=== PATIENT | female | born 1960 | race Caucasian/White ===

== ENCOUNTER 2017-04-16 13:32 | Emergency (ER) | payer OTHER ==
--- NOTE | 2017-04-16 15:18 | DIAGNOSTIC IMAGING REPORT ---
PROCEDURE: CT ABDOMEN/PELVIS W/O CONTRAST INDICATION: Right flank pain TECHNIQUE: Axial CT images were obtained through the abdomen and pelvis without IV contrast. Coronal and sagittal reformations were created. COMPARISON: None. FINDINGS: Clear lung bases. Normal sized heart. No hiatal hernia. No intrarenal calcifications. The right kidney is only partially ascended, located approximately at the level of the iliac crest, and has a morphology suggestive of intrarenal duplication. Mild right upper pole perinephric inflammation. No significant hydronephrosis, hydroureter or ureteral calcifications. The unenhanced appearance of the liver, decompressed gallbladder, adrenal glands, spleen, left kidney, pancreas, retroperitoneal vessels, stomach, and bowel loops is normal. Normal appendix. The uterus is present, normal size. Normal urinary bladder. The ovaries are not well seen. No adnexal masses. No adenopathy or free fluid. Intact osseous structures. IMPRESSION: 1. Mild perinephric inflammation around the partially ascended right kidney. Pyelonephritis should be considered as well as small stone passage. There were no urinary calculi identified in the collecting system. 2. Normal appendix. 3. Discussed with Dr. Farooq in the emergency room. All CT scans at this facility use dose modulation, iterative reconstruction, and/or weight-based dosing when appropriate to reduce radiation dose to as low as reasonably achievable.
--- NOTE | 2017-04-16 17:55 | ED NURSING NOTES ---
Clinical Report - Nurses [facility] [address] [place] [address] 04/16/2017 13:34 Patient: JERSEY VNAN TRIAGE Triage time 13:Apr 16 2017. Acuity: LEVEL 3. Chief Complaint: ABDOMINAL PAIN. 13:42 04/16/17. 13:42 04/16/17. Alert. ( RLQ pain that started this AM). --13:47 Efrain Salazar R.N. 13:42 04/16/17. BP: 100/68. HR: 96. RR: 16. O2 saturation: 99% on room air. Temp: 98.2 F (oral). Pain level now: 02/05. --13:47 Efrain Salazar R.N. Weight: 42.1 kg stated. Height/Length: 62 inches Per Patient. BMI: 17. --13:45 Efrain Salazar R.N. Medications Arnica. --13:46 Efrain Salazar R.N. Cantharis Compositum Oral. --13:47 Efrain Salazar R.N. Medication/allergy information source: the patient. --13:47 Efrain Salazar R.N. Allergies None. --13:47 Efrain Salazar R.N. History Arrived by private vehicle, and unaccompanied. Primary physician ([facility]). 13:42 04/16/17. This started today. ( This AM around 0400). 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 PAST MEDICAL HX: Immunizations not up to date. SOCIAL HX: Current every day heavy tobacco smoker- less than 1 pack per day. No alcohol use or drug use. No recent travel. No known contact with a sick individual. ABUSE ASSESSMENT: No report of abuse. FALL RISK ASSESSMENT: Fall risk assessment completed. No fall risk identified. NUTRITIONAL RISK ASSESSMENT: The nutritional risk assessment revealed no deficiencies. FUNCTIONAL ASSESSMENT: Functional assessment: no impairments noted. LEARNING NEEDS ASSESSMENT: The learning needs assessment revealed no barriers. SKIN INTEGRITY ASSESSMENT: Skin integrity risk assessment completed. No skin integrity risk identified. --13:47 Efrain Salazar R.N. PROBLEMS: UTI - Urinary Tract Infection. --13:49 Efrain Salazar R.N. ADDITIONAL SURGERIES: Colonoscopy [2017]. --13:49 Efrain Salazar R.N. The following entry was struck by Efrain Salazar R.N., 13:49 <<STRICKEN ENTRY-- Colonoscopy. --13:48 Efrain Salazar R.N. --END STRIKE>>. Assessment 13:42 04/16/17. --13:47 Efrain Salazar R.N. Interventions 13:42 04/16/17. 13:42 04/16/17. ID and allergy band on patient. To treatment room. --13:47 Efrain Salazar R.N. PHYSICAL ASSESSMENT 13:42 04/16/17. Ambulatory to room. GENERAL / NEURO / PSYCH: Alert. Oriented X 4. RESPIRATORY: Respirations not labored. GI / : Abdominal tenderness in the right lower quadrant. ( RLQ pain with palpation). SKIN: Skin is warm and dry. --13:48 Efrain Salazar R.N. NURSING PROGRESS NOTES 13:48 04/16/17. The plan of care for this patient has been created. Patient gowned. Head of bed elevated. Reassurance given. Two patient identifiers checked. Call light placed in reach. Side rails up x 2. Bed placed in lowest position. Brakes of bed on. --13:48 Efrain Salazar R.N. 13:48 04/16/17. Patient ready for evaluation- chart flagged. --13:48 Efrain Salazar R.N. 13:50 04/16/2017 Site #1 started via IV in the left antecubital space with an 20g angiocath; one attempt. Blood drawn: rainbow set. Labeled in the presence of the patient and sent to the lab. Saline lock flushed with 10 mL saline. --13:50 Efrain Salazar R.N. 14:42 04/16/17. ( at bedside). --14:42 Efrain Salazar R.N. 15:43 04/16/2017 Started 1 gm of Ceftriaxone IVPB in bag #1 50 mL; at 120 mL/hr over 20 minute(s) via site #1; Allergies verified and confirmed 5 rights. IV patency established. IV site checked: no pain, redness, or swelling. IV flushed thoroughly pre- and post-medication administration. Completed per protocol. --15:44 Efrain Salazar R.N. 16:09 04/16/2017 Ceftriaxone IVPB Discontinued: bag #1 infused. Total amount infused: 50 mL. IV patency established. IV site checked: no pain, redness, or swelling. IV flushed thoroughly. --16:14 Efrain Salazar R.N. 16:49 04/16/2017 Percocet (Oxycodone-Acetaminophen) PO 5/325 mg Tablets 1 tab given. Allergies verified, confirmed 5 rights and sedative warning given to the patient. --16:49 Efrain Salazar R.N. 17:25 04/16/17. BP: 102/67. HR: 72. RR: 14. O2 saturation: 100% on room air. --17:25 Efrain Salazar R.N. 17:25 04/16/17. --17:25 Efrain Salazar R.N. 17:04/16/17. Patient informed about reason for wait and about plan of care. --17:26 Efrain Salazar R.N. 17:26 04/16/17. Patient waiting for disposition. --17:26 Efrain Salazar R.N. 17:53 04/16/2017 Site #1 removed upon discharge. Catheter intact. --17:53 Efrain Salazar R.N. DISPOSITION / DISCHARGE 17:54 04/16/17. Condition at departure: improved. The goals identified in the patient's plan of care were met. No learning barriers present. Discharge instructions provided and reviewed with the patient. Reviewed warnings. Reviewed medication(s). Patient verbalized understanding. Written instructions provided in Bengali. The patient was discharged by the physician. She was discharged home. She left the Emergency Department ambulatory and via private vehicle. Marketing Development Specialist driving. FALL RISK ASSESSMENT: Fall risk assessment completed. No fall risk identified. --17:54 Efrain Salazar R.N. 17:53 04/16/17. BP: 104/70. HR: 83. RR: 14. O2 saturation: 98% on room air. Temp: 98.2 F (oral). Pain level now: 12/06. --17:54 Efrain Salazar R.N. Departure time: 1800. --18:48 Efrain Salazar R.N. Locked/Released at 04/16/2017 18:49 by Efrain Salazar R.N.
--- NOTE | 2017-04-16 17:55 | ED ORDER SUMMARY ---
..... Patient: JERSEY VANN OrderSheet [facility] VisitID: [id number] [place] [address] 56y, F Registration Date/Time: 04/16/2017 ORDER SHEET Weight: 42.1 kg (stated) Allergies: None GENERAL ORDERS: UA-Culture if indicated Urgent (13:48 04/16/2017 JBoardley R.N. per protocol) (Ack 13:54 AMcQuoid ER Tech1) (13:57 JBoardley R.N.) CBC w Diff Urgent (13:49 04/16/2017 JBoardley R.N. per protocol) (Ack 13:54 AMcQuoid ER Tech1) (13:57 JBoardley R.N.) CMP Urgent (13:49 04/16/2017 JBoardley R.N. per protocol) (Ack 13:54 AMcQuoid ER Tech1) (13:57 JBoardley R.N.) CT Abd/Pel wo Cont (Right) Urgent (14:47 04/16/2017 Meme Stringer) (Ack 14:59 AMcQuoid ER Tech1) (15:39 JBoardley R.N.) MEDICATION ORDERS: Percocet PO 5/325 mg (HIGH ALERT MEDICATION, NOW) (16:49 04/16/2017 JBoardley R.N. verbal order read back to Meme Stringer) (16:49 JBoardley R.N.) IV FLUIDS: IV Saline Lock (13:50 04/16/2017 JBoardley R.N. per protocol) (13:50 JBoardley R.N.) Ceftriaxone IV 1 gm/50mL (NOW) (15:37 04/16/2017 Meme Stringer) (Ack 15:41 JBoardley R.N.) (15:44 JBoardley R.N.) ORDER SHEET NOTES: [Electronically signed by Efrain Salazar R.N. (18:49 04/16/2017)] [Electronically signed by Dilip Farooq Dr. (11:58 04/17/2017)] [Electronically locked/signed by Efrain Salazar R.N. (18:49 04/16/2017)]
--- NOTE | 2017-04-16 17:55 | ED NURSING NOTES ---
Clinical Report - Nurses [facility] [address] [place] [address] 04/16/2017 13:34 Patient: EJRSEY VANN TRIAGE Triage time 13:Apr 16 2017. Acuity: LEVEL 3. Chief Complaint: ABDOMINAL PAIN. 13:42 04/16/17. 13:42 04/16/17. Alert. ( RLQ pain that started this AM). --13:47 Efrain Salazar R.N. 13:42 04/16/17. BP: 100/68. HR: 96. RR: 16. O2 saturation: 99% on room air. Temp: 98.2 F (oral). Pain level now: 02/05. --13:47 Efrain Salazar R.N. Weight: 42.1 kg stated. Height/Length: 62 inches Per Patient. BMI: 17. --13:45 Efrain Salazar R.N. Medications Arnica. --13:46 Efrain Salzaar R.N. Cantharis Compositum Oral. --13:47 Efrain Salazar R.N. Medication/allergy information source: the patient. --13:47 Efrain Salazar R.N. Allergies None. --13:47 Efrain Salazar R.N. History Arrived by private vehicle, and unaccompanied. Primary physician ([facility] The[facility]). 13:42 04/16/17. This started today. ( This AM around 0400). 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 PAST MEDICAL HX: Immunizations not up to date. SOCIAL HX: Current every day heavy tobacco smoker- less than 1 pack per day. No alcohol use or drug use. No recent travel. No known contact with a sick individual. ABUSE ASSESSMENT: No report of abuse. FALL RISK ASSESSMENT: Fall risk assessment completed. No fall risk identified. NUTRITIONAL RISK ASSESSMENT: The nutritional risk assessment revealed no deficiencies. FUNCTIONAL ASSESSMENT: Functional assessment: no impairments noted. LEARNING NEEDS ASSESSMENT: The learning needs assessment revealed no barriers. SKIN INTEGRITY ASSESSMENT: Skin integrity risk assessment completed. No skin integrity risk identified. --13:47 Efrain Salazar R.N. PROBLEMS: UTI - Urinary Tract Infection. --13:49 Efrain Salazar R.N. ADDITIONAL SURGERIES: Colonoscopy [2017]. --13:49 Efrain Salazar R.N. The following entry was struck by Efrain Salazar R.N., 13:49 <<STRICKEN ENTRY-- Colonoscopy. --13:48 Efrain Salazar R.N. --END STRIKE>>. Assessment 13:42 04/16/17. --13:47 Efrain Salazar R.N. Interventions 13:42 04/16/17. 13:42 04/16/17. ID and allergy band on patient. To treatment room. --13:47 Efrain Salazar R.N. PHYSICAL ASSESSMENT 13:42 04/16/17. Ambulatory to room. GENERAL / NEURO / PSYCH: Alert. Oriented X 4. RESPIRATORY: Respirations not labored. GI / : Abdominal tenderness in the right lower quadrant. ( RLQ pain with palpation). SKIN: Skin is warm and dry. --13:48 Efrain Salazar R.N. NURSING PROGRESS NOTES 13:48 04/16/17. The plan of care for this patient has been created. Patient gowned. Head of bed elevated. Reassurance given. Two patient identifiers checked. Call light placed in reach. Side rails up x 2. Bed placed in lowest position. Brakes of bed on. --13:48 Efrain Salazar R.N. 13:48 04/16/17. Patient ready for evaluation- chart flagged. --13:48 Efrain Salazar R.N. 13:50 04/16/2017 Site #1 started via IV in the left antecubital space with an 20g angiocath; one attempt. Blood drawn: rainbow set. Labeled in the presence of the patient and sent to the lab. Saline lock flushed with 10 mL saline. --13:50 Efrain Salazar R.N. 14:42 04/16/17. ( at bedside). --14:42 Efrain Salazar R.N. 15:43 04/16/2017 Started 1 gm of Ceftriaxone IVPB in bag #1 50 mL; at 120 mL/hr over 20 minute(s) via site #1; Allergies verified and confirmed 5 rights. IV patency established. IV site checked: no pain, redness, or swelling. IV flushed thoroughly pre- and post-medication administration. Completed per protocol. --15:44 Efrain Salazar R.N. 16:09 04/16/2017 Ceftriaxone IVPB Discontinued: bag #1 infused. Total amount infused: 50 mL. IV patency established. IV site checked: no pain, redness, or swelling. IV flushed thoroughly. --16:14 Efrain Salazar R.N. 16:49 04/16/2017 Percocet (Oxycodone-Acetaminophen) PO 5/325 mg Tablets 1 tab given. Allergies verified, confirmed 5 rights and sedative warning given to the patient. --16:49 Efrain Salazar R.N. 17:25 04/16/17. BP: 102/67. HR: 72. RR: 14. O2 saturation: 100% on room air. --17:25 Efrain Salazar R.N. 17:25 04/16/17. --17:25 Efrain Salazar R.N. 17:04/16/17. Patient informed about reason for wait and about plan of care. --17:26 Efrain Salazar R.N. 17:26 04/16/17. Patient waiting for disposition. --17:26 Efrain Salazar R.N. 17:53 04/16/2017 Site #1 removed upon discharge. Catheter intact. --17:53 Efrain Salazar R.N. DISPOSITION / DISCHARGE 17:54 04/16/17. Condition at departure: improved. The goals identified in the patient's plan of care were met. No learning barriers present. Discharge instructions provided and reviewed with the patient. Reviewed warnings. Reviewed medication(s). Patient verbalized understanding. Written instructions provided in Divehi. The patient was discharged by the physician. She was discharged home. She left the Emergency Department ambulatory and via private vehicle. Greens Planter driving. FALL RISK ASSESSMENT: Fall risk assessment completed. No fall risk identified. --17:54 Efrain Salazar R.N. 17:53 04/16/17. BP: 104/70. HR: 83. RR: 14. O2 saturation: 98% on room air. Temp: 98.2 F (oral). Pain level now: 12/06. --17:54 Efrain Salazar R.N. Departure time: 1800. --18:48 Efrain Salazar R.N. Locked/Released at 04/16/2017 18:49 by Efrain Salazar R.N.
--- NOTE | 2017-04-16 17:55 | ED CLINICAL REPORT ---
Clinical Report - Physicians/Mid Levels [facility] [address] [place] [address] 04/16/2017 13:34 Patient: JERSEY VANN Time Seen: 14:34; initial patient contact. Arrived- By private vehicle. Historian- patient. HISTORY OF PRESENT ILLNESS Chief Complaint: ABDOMINAL PAIN and FLANK PAIN. At its maximum, severity described as moderate. When seen in the E.D., severity described as moderate. Modifying factors. Not worsened by anything. Not relieved by anything. It is described as "pain" and it is described as located in the right flank and the right abdomen and right lower quadrant and radiating to the low back. This started today and is still present. The patient has had nausea. No vomiting or diarrhea. Similar symptoms previously: None. Recent medical care: Not recently seen/assessed. REVIEW OF SYSTEMS No constipation, black stools, difficulty with urination, bloody stools or fever. No chills. She has had pain on urination. The patient has had urinary frequency. All systems otherwise negative, except as recorded above. PAST HISTORY UTI - Urinary Tract Infection. SURGERIES: Colonoscopy [2017]. SOCIAL HISTORY Current every day smoker. No alcohol use or drug use. ADDITIONAL NOTES The nursing notes have been reviewed. PHYSICAL EXAM Vital Signs: 04/16/2017 13:42 BP: 100/68. HR: 96. RR: 16. O2 saturation: 99%. Temp: 98.2 F. Pain level now: 5/10. Have been reviewed as normal. Appearance: Alert. Oriented X3. No acute distress. Eyes: Eyes normal inspection. ENT: Pharynx normal. CVS: Normal heart rate and rhythm. Heart sounds normal. Respiratory: No respiratory distress. Breath sounds normal. Abdomen: Soft. Mild tenderness in the right lower quadrant. No guarding, rebound tenderness or obturator or psoas sign present. Bowel sounds normal. No organomegaly. No mass. Back: Mild CVA tenderness on the right. Skin: Skin warm and dry. Normal skin color. Extremities: No lower extremity edema. Neuro: Oriented X 3. LABS, X-RAYS, AND EKG Abdominal CT: 1. Mild perinephric inflammation around the partially ascended right kidney. Pyelonephritis should be considered as well as small stone passage. There were no urinary calculi identified in the collecting system. 2. Normal appendix. Study type: abdomen and pelvis. Abdominal CT performed with IV contrast. The study was independently viewed by me, interpreted by the radiologist and discussed with the radiologist. Prior studies were not available for comparison. Laboratory Tests: UA-Culture if indicated: (LUCIANO: 04/16/2017 13:45) ( [facility] 04/16/2017 14:14) Final results Test Result Flag Units (Reference) URINE COLOR YELLOW URINE APPEARANCE SL CLOUDY URINE GLUCOSE NEGATIVE (NEGATIVE) URINE BILIRUBIN NEGATIVE (NEGATIVE) URINE KETONE NEGATIVE (NEGATIVE) URINE SPECIFIC GRAVITY 1.025 (1.010-1.030) URINE PH 5.5 (5.0-8.0) URINE PROTEIN 1+ (NEGATIVE) URINE UROBILINOGEN 0.2 EU/dL (0.2-1.0) URINE NITRITE POSITIVE (NEGATIVE) URINE BLOOD 2+ (NEGATIVE) URINE LEUK ESTERASE POSITIVE (NEGATIVE) URINE RBC 5-10 rbc/hpf (0-1) URINE WBC 25-50 wbc/hpf (0-1) URINE EPITHELIAL CELLS 0-1 EPI/hpf (0-5) URINE BACTERIA TRACE (<1+) (NONE SEEN) URINE COMMENT CULTURE INDICATED URINE CULTURES ARE SET-UP BASED ON THE FOLLOWING CRITERIA:POSITIVE NITRITEPOSITIVE LEUKOCYTE ESTERASEGREATER THAN 10 WHITE BLOOD CELLSMODERATE (2+) OR GREATER BACTERIA CBC w Diff: (LUCIANO: 04/16/2017 13:45) ( [facility] 04/16/2017 14:03) Final results Test Result Flag Units (Reference) WHITE BLOOD COUNT 11.0 K/uL (4.5-11.5) RED BLOOD COUNT 3.84 L M/uL (4.00-5.20) HEMOGLOBIN 12.0 gm/dL (12.0-16.0) HEMATOCRIT 35.6 L % (36.0-46.0) MEAN CELL VOLUME 93 fL (80-100) MEAN CORPUSCULAR HGB 31 pg (26-34) MEAN CORPUSCULAR HGB CONC 34 g/dL (31-37) RED CELL DISTRIBUTION WIDTH 13.2 % (11.6-14.8) PLATELET COUNT 278 K/uL (150-400) NEUTROPHIL % 71.1 % (50-75) LYMPH % 19.8 L % (25-40) MONO % 7.6 % (3-14) EOSINOPHIL % 0.8 % (0-4) BASOPHIL % 0.7 % (0-2) CMP: (LUCIANO: 04/16/2017 13:45) ( MsgRcvd 04/16/2017 14:23) Final results Test Result Flag Units (Reference) GLUCOSE 145 H mg/dL (70-110) BUN 17 mg/dL (7-18) CREATININE 0.9 mg/dL (0.6-1.3) Estimated GFR >60 mL/min Estimated GFR- >60 mL/min Note: Persistent reduction over 3 months in eGFR<60 mL/min/1.73 m2 defines CKD. Patients with eGFR values>=60 mL/min/1.73 m2 may also have CKD if evidence ofpersistent proteinuria. Additional information may be foundat www.kidney.org. SODIUM 134 L mmol/L (136-145) POTASSIUM 3.8 mmol/L (3.5-5.1) CHLORIDE 101 mmol/L (98-107) CARBON DIOXIDE 24 mmol/L (21-32) CALCIUM 9.0 mg/dL (8.5-10.1) TOTAL PROTEIN 7.4 g/dL (6.4-8.2) ALBUMIN 3.5 g/dL (3.3-5.0) BILIRUBIN, TOTAL 0.6 mg/dL (0.0-1.0) ALKALINE PHOSPHATASE 72 U/L (46-116) AST (SGOT) 18 U/L (15-37) ALT (SGPT) 19 U/L (12-78) . PROGRESS AND PROCEDURES Disposition: Discharged home in good and improved condition. Condition: good. CLINICAL IMPRESSION Acute pyelonephritis INSTRUCTIONS Do not smoke. Seek medical help to quit smoking. Your Current Medications: CONTINUE TAKING THE FOLLOWING MEDICATIONS: Arnica*. Cantharis Compositum Oral. Prescription Medications: Suprax 400 mg: take 1 tab orally every day. No refills. Substitution is permissible. (For 14 days) Tramadol 50 mg: take 1 orally every 6 hours as needed for pain. Do not take more than 8 tablets in a 24 hour period. Dispense twenty (20). No refills. Follow-up: Follow up with your doctor in about five days. Call for an appointment. Screening today revealed the patient's blood pressure to be in the normal range. (Electronically signed by Dilip Farooq Dr. 04/17/2017 11:58)
--- NOTE | 2017-04-16 17:55 | ED ORDER SUMMARY ---
..... Patient: JERSEY VANN OrderSheet [facility] VisitID: [id number] [place] [address] 56y, F Registration Date/Time: 04/16/2017 ORDER SHEET Weight: 42.1 kg (stated) Allergies: None GENERAL ORDERS: UA-Culture if indicated Urgent (13:48 04/16/2017 JBoardley R.N. per protocol) (Ack 13:54 AMcQuoid ER Tech1) (13:57 JBoardley R.N.) CBC w Diff Urgent (13:49 04/16/2017 JBoardley R.N. per protocol) (Ack 13:54 AMcQuoid ER Tech1) (13:57 JBoardley R.N.) CMP Urgent (13:49 04/16/2017 JBoardley R.N. per protocol) (Ack 13:54 AMcQuoid ER Tech1) (13:57 JBoardley R.N.) CT Abd/Pel wo Cont (Right) Urgent (14:47 04/16/2017 Meme Stringer) (Ack 14:59 AMcQuoid ER Tech1) (15:39 JBoardley R.N.) MEDICATION ORDERS: Percocet PO 5/325 mg (HIGH ALERT MEDICATION, NOW) (16:49 04/16/2017 JBoardley R.N. verbal order read back to Meme Stringer) (16:49 JBoardley R.N.) IV FLUIDS: IV Saline Lock (13:50 04/16/2017 JBoardley R.N. per protocol) (13:50 JBoardley R.N.) Ceftriaxone IV 1 gm/50mL (NOW) (15:37 04/16/2017 Meme Stringer) (Ack 15:41 JBoardley R.N.) (15:44 JBoardley R.N.) ORDER SHEET NOTES: [Electronically signed by Efrain Salazar R.N. (18:49 04/16/2017)] [Electronically signed by Dilip Farooq Dr. (11:58 04/17/2017)] [Electronically locked/signed by Efrain Salazar R.N. (18:49 04/16/2017)]
--- NOTE | 2017-04-17 11:59 | ED MAR SUMMARY ---
..... Medication Administration Record Located Within [facility] [address] [place] [address] Patient: JERSEY VANN Visit ID: [id number] 56y, F Weight: 42.1 kg Height/Length: 62 in BMI: 17 ALLERGIES: None Start 15:43 04/16/2017 Efrain Salazar R.N., Stop 16:09 04/16/2017 Efrain Salazar R.N. Medication Administered: CEFTRIAXONE [IVPB], Dose: 1 gm IVPB over 20 minute(s), Rate: 120 mL/hr, Dispensed: 50 mL bag, Site: #1 left AC. Medication Ordered: Ceftriaxone IV 1 gm/50mL (NOW). Given 16:49 04/16/2017 Efrain Salazar R.N. Medication Administered: PERCOCET [PO] (OXYCODONE-ACETAMINOPHEN), Dose: 1 tab 5/325 mg Tablets PO. Medication Ordered: Percocet PO 5/325 mg (HIGH ALERT MEDICATION, NOW).
--- NOTE | 2017-04-17 11:59 | ED MED RECONCILIATION SUMMARY ---
Patient: JERSEY VANN Medication Reconciliation Report [facility] VisitID: [id number] [address] [place] [address] 56y, F Registration Date/Time: 04/16/2017 Weight: 42.1 kg Height/Length: 62 in. BMI: 17.0 ALLERGIES: None The patient's Home Medications are listed below: CONTINUE TAKING THE FOLLOWING MEDICATIONS: Arnica Cantharis Compositum Oral The source(s) of the original Home Medication information: patient The following Medications were given to the patient in the Emergency Department: Ceftriaxone [IVPB] IVPB bolus 0, then 1 gm 120 mL/hr, administered: 04/16/2017 3:43:00 PM Percocet [PO] PO 1 tab, administered: 04/16/2017 4:49:00 PM The following Medications were prescribed to the patient: Suprax 400 mg: take 1 tab orally every day. No refills. Substitution is permissible.(For 14 days) -- Dilip Farooq Dr. Tramadol 50 mg: take 1 orally every 6 hours as needed for pain. Do not take more than 8 tablets in a 24 hour period. Dispense twenty (20). No refills. -- Dilip Farooq Dr.
--- NOTE | 2017-04-17 11:59 | ED MED RECONCILIATION SUMMARY ---
Patient: JERSEY VANN Medication Reconciliation Report [facility] VisitID: [id number] [address] [place] [address] 56y, F Registration Date/Time: 04/16/2017 Weight: 42.1 kg Height/Length: 62 in. BMI: 17.0 ALLERGIES: None The patient's Home Medications are listed below: CONTINUE TAKING THE FOLLOWING MEDICATIONS: Arnica Cantharis Compositum Oral The source(s) of the original Home Medication information: patient The following Medications were given to the patient in the Emergency Department: Ceftriaxone [IVPB] IVPB bolus 0, then 1 gm 120 mL/hr, administered: 04/16/2017 3:43:00 PM Percocet [PO] PO 1 tab, administered: 04/16/2017 4:49:00 PM The following Medications were prescribed to the patient: Suprax 400 mg: take 1 tab orally every day. No refills. Substitution is permissible.(For 14 days) -- Dilip Farooq Dr. Tramadol 50 mg: take 1 orally every 6 hours as needed for pain. Do not take more than 8 tablets in a 24 hour period. Dispense twenty (20). No refills. -- Dilip Farooq Dr.
--- NOTE | 2017-04-17 11:59 | ED DISCHARGE INSTRUCTIONS ---
Patient: JERSEY VANN General Instructions [facility] VisitID: [id number] [place] [address] 56y, F Registration Date/Time: 04/16/2017 Acute pyelonephritis INSTRUCTIONS Do not smoke. Seek medical help to quit smoking. Your Current Medications: CONTINUE TAKING THE FOLLOWING MEDICATIONS: Arnica*. Cantharis Compositum Oral. Prescription Medications: Suprax 400 mg: take 1 tab orally every day. No refills. Substitution is permissible. (For 14 days) Tramadol 50 mg: take 1 orally every 6 hours as needed for pain. Do not take more than 8 tablets in a 24 hour period. Dispense twenty (20). No refills. Follow-up: Follow up with your doctor in about five days. Call for an appointment. Screening today revealed the patient's blood pressure to be in the normal range. ADDITIONAL INFORMATION Kidney Infection [Adult, Female] An infection of the kidney is also called "pyelonephritis". It usually starts as a bladder infection ("cystitis") which spreads to the kidneys. Pyelonephritis is more serious than a bladder infection. It can cause severe illness if not treated properly. The usual symptoms include an aching pain in the back, side or lower abdomen. Other symptoms may include fever, chills, nausea, vomiting, an urge to urinate and a burning sensation when passing urine. Home Care: Stay home from work or school. Rest in bed until your fever breaks and you are feeling better. Drink lots of fluid (at least 6-8 glasses a day, unless you must restrict fluids for other medical reasons). This will force the medicine into your urinary system and flush the bacteria out of your body. Avoid sexual intercourse until you have finished all of your medicine and your symptoms have gone away. Avoid caffeine, alcohol and spicy foods which may irritate the kidney and bladder. You may use acetaminophen (Tylenol) or ibuprofen (Motrin, Advil) to control pain, unless another pain medicine was prescribed. [NOTE: If you have chronic liver or kidney disease or ever had a stomach ulcer or GI bleeding, talk with your doctor before using these medicines.] Follow Up with your doctor or as advised by our staff for a repeat urine test in 10 days. This will ensure that your infection is fully cleared. [NOTE: If you had an X-ray or CT scan, it will be reviewed by a specialist. You will be notified of any new findings that may affect your care.] Get Prompt Medical Attention if any of the following occur: Fever over 100.4F (38.0C) after 48 hours of treatment No improvement by the third day of treatment Increasing back or abdominal pain Repeated vomiting or inability to take oral medicine Weakness, dizziness or fainting How To Quit Smoking Smoking is one of the hardest habits to break. About half of all those who have ever smoked have been able to quit, and most of those (about 70%) who still smoke want to quit. Here are some of the best ways to stop smoking. Keep Trying: It takes most smokers about 8 tries before they are finally able to fully quit. So, the more often you try and fail, the better your chance of quitting the next time! So, don't give up! Go Cold [place]: Most ex-smokers quit cold turkey. Trying to cut back gradually doesn't seem to work as well, perhaps because it continues the smoking habit. Also, it is possible to fool yourself by inhaling more while smoking fewer cigarettes. This results in the same amount of nicotine in your body! Get Support: Support programs can make an important difference, especially for the heavy smoker. These groups offer lectures, methods to change your behavior and peer support. Call the free national Quitline for more information. 483-UXCS-RZD (975-494-6162). Low-cost or free programs are offered by many hospitals, local chapters of the [place] [employer] (954-105-9047) and the [employer] (408-874-6857). Support at home is important too. Non-smokers can help by offering praise and encouragement. If the smoker fails to quit, encourage them to try again! Opzf-Arx-Qpcbyzl Medicines: For those who can't quit on their own, Nicotine Replacement Therapy (NRT) may make quitting much easier. Certain aids such as the nicotine patch, gum and lozenge are available without a prescription. However, it is best to use these under the guidance of your doctor. The skin patch provides a steady supply of nicotine to the body. Nicotine gum and lozenge gives temporary bursts of low levels of nicotine. Both methods take the edge off the craving for cigarettes. WARNING: If you feel symptoms of nicotine overdose, such as nausea, vomiting, dizziness, weakness, or fast heartbeat, stop using these and see your doctor. Prescription Medicines: After evaluating your smoking patterns and prior attempts at quitting, your doctor may offer a prescription medicine such as bupropion (Zyban, Wellbutrin), varenicline (Chantix, Champix), a niocotine inhaler or nasal spray. Each has its unique advantage and side effects which your doctor can review with you. Health Benefits Of Quitting: The benefits of quitting start right away and keep improving the longer you go without smokin minutes: blood pressure and pulse return to normal 8 hours: oxygen levels return to normal 2 days: ability to smell and taste begins to improve as damaged nerves start to regrow 2-3 weeks: circulation and lung function improves 1-9 months: decreased cough, congestion and shortness of breath; less tired 1 year: risk of heart attack decreases by half 5 years: risk of lung cancer decreases by half; risk of stroke becomes the same as a non-smoker For information about how to quit smoking, visit the following links: National [employer] [place] , Clearing the Air, Quit Smoking Today - an online booklet. http://www.smokefree.gov/pubs/clearing_the_air.pdf Smokefree.gov http://smokefree.gov/ QuitNet http://www.quitnet.com/ Cefixime Oral tablet What is this medicine? CEFIXIME (sef IX eem) is a cephalosporin antibiotic. It is used to treat certain kinds of bacterial infections. It will not work for colds, flu, or other viral infections. How should I use this medicine? Take this medicine by mouth with a glass of water. Follow the directions on the prescription label. You can take it with or without food. If it upsets your stomach, take it with food. Take your medicine at regular intervals. Do not take it more often than directed. Take all of your medicine as directed even if you think your are better. Do not skip doses or stop your medicine early. Talk to your director educational radio regarding the use of this medicine in children. While this drug may be prescribed for children as young as 6 months for selected conditions, precautions do apply. What side effects may I notice from receiving this medicine? Side effects that you should report to your doctor or health lead care manager as soon as possible: allergic reactions like skin rash, itching or hives, swelling of the face, lips, or tongue bloody or watery diarrhea difficulty breathing or wheezing dizziness fever pain or trouble passing urine or change in the amount of urine redness, blistering, peeling or loosening of the skin, including inside the mouth seizures unusual bleeding or bruising unusually weak or tired yellowing of the eyes or skin Side effects that usually do not require medical attention (report to your doctor or health lead care manager if they continue or are bothersome): diarrhea headache genital or anal irritation loss of appetite nausea, vomiting stomach pain, upset, or gas What may interact with this medicine? aspirin and aspirin-like medicines carbamazepine medicines that treat or prevent blood clots like warfarin What if I miss a dose? If you miss a dose, take it as soon as you can. If it is almost time for your next dose, take only that dose. Do not take double or extra doses. Where should I keep my medicine? Keep out of the reach of children. Store at room temperature between 20 and 25 degrees C (68 and 77 degrees F). Throw away any unused medicine after the expiration date. What should I tell my health care provider before I take this medicine? They need to know if you have any of these conditions: bleeding problems kidney disease stomach or intestine problems (especially colitis) an unusual or allergic reaction to cefixime, other cephalosporin or penicillin antibiotics, other foods, dyes or preservatives or trying to get breast-feeding What should I watch for while using this medicine? Tell your doctor or health lead care manager if your symptoms do not improve or if you get new symptoms. Your doctor will monitor your condition and blood work as needed. Do not treat diarrhea with over the counter products. Contact your doctor if you have diarrhea that lasts more than 2 days or if it is severe and watery. This medicine can interfere with some urine glucose and some urine ketone tests. If you use such tests, talk with your health lead care manager. If you are being treated for a sexually transmitted disease, avoid sexual contact until you have finished your treatment. Having sex can infect your sexual partner. Tramadol Hydrochloride Oral tablet What is this medicine? TRAMADOL (TRA ma dole) is a pain reliever. It is used to treat moderate to severe pain in adults. How should I use this medicine? Take this medicine by mouth with a full glass of water. Follow the directions on the prescription label. If the medicine upsets your stomach, take it with food or milk. Do not take more medicine than you are told to take. Talk to your director educational radio regarding the use of this medicine in children. Special care may be needed. What side effects may I notice from receiving this medicine? Side effects that you should report to your doctor or health lead care manager as soon as possible: allergic reactions like skin rash, itching or hives, swelling of the face, lips, or tongue breathing difficulties, wheezing confusion itching light headedness or fainting spells redness, blistering, peeling or loosening of the skin, including inside the mouth seizures Side effects that usually do not require medical attention (report to your doctor or health lead care manager if they continue or are bothersome): constipation dizziness drowsiness headache nausea, vomiting What may interact with this medicine? Do not take this medicine with any of the following medications: MAOIs like Carbex, Eldepryl, Marplan, Nardil, and Parnate This medicine may also interact with the following medications: alcohol or medicines that contain alcohol antihistamines benzodiazepines bupropion carbamazepine or oxcarbazepine clozapine cyclobenzaprine digoxin furazolidone linezolid medicines for depression, anxiety, or psychotic disturbances medicines for migraine headache like almotriptan, eletriptan, frovatriptan, naratriptan, rizatriptan, sumatriptan, zolmitriptan medicines for pain like pentazocine, buprenorphine, butorphanol, meperidine, nalbuphine, and propoxyphene medicines for sleep muscle relaxants naltrexone phenobarbital phenothiazines like perphenazine, thioridazine, chlorpromazine, mesoridazine, fluphenazine, prochlorperazine, promazine, and trifluoperazine procarbazine warfarin What if I miss a dose? If you miss a dose, take it as soon as you can. If it is almost time for your next dose, take only that dose. Do not take double or extra doses. Where should I keep my medicine? Keep out of the reach of children. Store at room temperature between 15 and 30 degrees C (59 and 86 degrees F). Keep container tightly closed. Throw away any unused medicine after the expiration date. What should I tell my health care provider before I take this medicine? They need to know if you have any of these conditions: brain tumor depression drug abuse or addiction head injury if you frequently drink alcohol containing drinks kidney disease or trouble passing urine liver disease lung disease, asthma, or breathing problems seizures or epilepsy suicidal thoughts, plans, or attempt; a previous suicide attempt by you or a family member an unusual or allergic reaction to tramadol, codeine, other medicines, foods, dyes, or preservatives or trying to get breast-feeding What should I watch for while using this medicine? Tell your doctor or health lead care manager if your pain does not go away, if it gets worse, or if you have new or a different type of pain. You may develop tolerance to the medicine. Tolerance means that you will need a higher dose of the medicine for pain relief. Tolerance is normal and is expected if you take this medicine for a long time. Do not suddenly stop taking your medicine because you may develop a severe reaction. Your body becomes used to the medicine. This does NOT mean you are addicted. Addiction is a behavior related to getting and using a drug for a non-medical reason. If you have pain, you have a medical reason to take pain medicine. Your doctor will tell you how much medicine to take. If your doctor wants you to stop the medicine, the dose will be slowly lowered over time to avoid any side effects. You may get drowsy or dizzy. Do not drive, use machinery, or do anything that needs mental alertness until you know how this medicine affects you. Do not stand or sit up quickly, especially if you are an older patient. This reduces the risk of dizzy or fainting spells. Alcohol can increase or decrease the effects of this medicine. Avoid alcoholic drinks. You may have constipation. Try to have a bowel movement at least every 2 to 3 days. If you do not have a bowel movement for 3 days, call your doctor or health lead care manager. Your mouth may get dry. Chewing sugarless gum or sucking hard candy, and drinking plenty of water may help. Contact your doctor if the problem does not go away or is severe. You have been given the following additional information: Pyelonephritis, Female (Adult) Smoking Cessation Cefixime Oral tablet Tramadol Hydrochloride Oral tablet (Electronically signed by Dilip Farooq Dr. 04/17/2017 11:58)
--- NOTE | 2017-04-17 11:59 | ED DISCHARGE INSTRUCTIONS ---
Patient: JERSEY VANN General Instructions [facility] VisitID: [id number] [place] [address] 56y, F Registration Date/Time: 04/16/2017 Acute pyelonephritis INSTRUCTIONS Do not smoke. Seek medical help to quit smoking. Your Current Medications: CONTINUE TAKING THE FOLLOWING MEDICATIONS: Arnica*. Cantharis Compositum Oral. Prescription Medications: Suprax 400 mg: take 1 tab orally every day. No refills. Substitution is permissible. (For 14 days) Tramadol 50 mg: take 1 orally every 6 hours as needed for pain. Do not take more than 8 tablets in a 24 hour period. Dispense twenty (20). No refills. Follow-up: Follow up with your doctor in about five days. Call for an appointment. Screening today revealed the patient's blood pressure to be in the normal range. ADDITIONAL INFORMATION Kidney Infection [Adult, Female] An infection of the kidney is also called "pyelonephritis". It usually starts as a bladder infection ("cystitis") which spreads to the kidneys. Pyelonephritis is more serious than a bladder infection. It can cause severe illness if not treated properly. The usual symptoms include an aching pain in the back, side or lower abdomen. Other symptoms may include fever, chills, nausea, vomiting, an urge to urinate and a burning sensation when passing urine. Home Care: Stay home from work or school. Rest in bed until your fever breaks and you are feeling better. Drink lots of fluid (at least 6-8 glasses a day, unless you must restrict fluids for other medical reasons). This will force the medicine into your urinary system and flush the bacteria out of your body. Avoid sexual intercourse until you have finished all of your medicine and your symptoms have gone away. Avoid caffeine, alcohol and spicy foods which may irritate the kidney and bladder. You may use acetaminophen (Tylenol) or ibuprofen (Motrin, Advil) to control pain, unless another pain medicine was prescribed. [NOTE: If you have chronic liver or kidney disease or ever had a stomach ulcer or GI bleeding, talk with your doctor before using these medicines.] Follow Up with your doctor or as advised by our staff for a repeat urine test in 10 days. This will ensure that your infection is fully cleared. [NOTE: If you had an X-ray or CT scan, it will be reviewed by a specialist. You will be notified of any new findings that may affect your care.] Get Prompt Medical Attention if any of the following occur: Fever over 100.4F (38.0C) after 48 hours of treatment No improvement by the third day of treatment Increasing back or abdominal pain Repeated vomiting or inability to take oral medicine Weakness, dizziness or fainting How To Quit Smoking Smoking is one of the hardest habits to break. About half of all those who have ever smoked have been able to quit, and most of those (about 70%) who still smoke want to quit. Here are some of the best ways to stop smoking. Keep Trying: It takes most smokers about 8 tries before they are finally able to fully quit. So, the more often you try and fail, the better your chance of quitting the next time! So, don't give up! Go Cold [place]: Most ex-smokers quit cold turkey. Trying to cut back gradually doesn't seem to work as well, perhaps because it continues the smoking habit. Also, it is possible to fool yourself by inhaling more while smoking fewer cigarettes. This results in the same amount of nicotine in your body! Get Support: Support programs can make an important difference, especially for the heavy smoker. These groups offer lectures, methods to change your behavior and peer support. Call the free national Quitline for more information. 268-GCUI-QGW (442-400-1500). Low-cost or free programs are offered by many hospitals, local chapters of the [place] [employer] (929-141-8391) and the [place] [employer] (827-998-5659). Support at home is important too. Non-smokers can help by offering praise and encouragement. If the smoker fails to quit, encourage them to try again! Ubuk-Wia-Lwamlgz Medicines: For those who can't quit on their own, Nicotine Replacement Therapy (NRT) may make quitting much easier. Certain aids such as the nicotine patch, gum and lozenge are available without a prescription. However, it is best to use these under the guidance of your doctor. The skin patch provides a steady supply of nicotine to the body. Nicotine gum and lozenge gives temporary bursts of low levels of nicotine. Both methods take the edge off the craving for cigarettes. WARNING: If you feel symptoms of nicotine overdose, such as nausea, vomiting, dizziness, weakness, or fast heartbeat, stop using these and see your doctor. Prescription Medicines: After evaluating your smoking patterns and prior attempts at quitting, your doctor may offer a prescription medicine such as bupropion (Zyban, Wellbutrin), varenicline (Chantix, Champix), a niocotine inhaler or nasal spray. Each has its unique advantage and side effects which your doctor can review with you. Health Benefits Of Quitting: The benefits of quitting start right away and keep improving the longer you go without smokin minutes: blood pressure and pulse return to normal 8 hours: oxygen levels return to normal 2 days: ability to smell and taste begins to improve as damaged nerves start to regrow 2-3 weeks: circulation and lung function improves 1-9 months: decreased cough, congestion and shortness of breath; less tired 1 year: risk of heart attack decreases by half 5 years: risk of lung cancer decreases by half; risk of stroke becomes the same as a non-smoker For information about how to quit smoking, visit the following links: National [employer] Lillie , Clearing the Air, Quit Smoking Today - an online booklet. http://www.smokefree.gov/pubs/clearing_the_air.pdf Smokefree.gov http://smokefree.gov/ QuitNet http://www.quitnet.com/ Cefixime Oral tablet What is this medicine? CEFIXIME (sef IX eem) is a cephalosporin antibiotic. It is used to treat certain kinds of bacterial infections. It will not work for colds, flu, or other viral infections. How should I use this medicine? Take this medicine by mouth with a glass of water. Follow the directions on the prescription label. You can take it with or without food. If it upsets your stomach, take it with food. Take your medicine at regular intervals. Do not take it more often than directed. Take all of your medicine as directed even if you think your are better. Do not skip doses or stop your medicine early. Talk to your fence maker regarding the use of this medicine in children. While this drug may be prescribed for children as young as 6 months for selected conditions, precautions do apply. What side effects may I notice from receiving this medicine? Side effects that you should report to your doctor or health pediatric acute care unit nurse as soon as possible: allergic reactions like skin rash, itching or hives, swelling of the face, lips, or tongue bloody or watery diarrhea difficulty breathing or wheezing dizziness fever pain or trouble passing urine or change in the amount of urine redness, blistering, peeling or loosening of the skin, including inside the mouth seizures unusual bleeding or bruising unusually weak or tired yellowing of the eyes or skin Side effects that usually do not require medical attention (report to your doctor or health pediatric acute care unit nurse if they continue or are bothersome): diarrhea headache genital or anal irritation loss of appetite nausea, vomiting stomach pain, upset, or gas What may interact with this medicine? aspirin and aspirin-like medicines carbamazepine medicines that treat or prevent blood clots like warfarin What if I miss a dose? If you miss a dose, take it as soon as you can. If it is almost time for your next dose, take only that dose. Do not take double or extra doses. Where should I keep my medicine? Keep out of the reach of children. Store at room temperature between 20 and 25 degrees C (68 and 77 degrees F). Throw away any unused medicine after the expiration date. What should I tell my health care provider before I take this medicine? They need to know if you have any of these conditions: bleeding problems kidney disease stomach or intestine problems (especially colitis) an unusual or allergic reaction to cefixime, other cephalosporin or penicillin antibiotics, other foods, dyes or preservatives or trying to get breast-feeding What should I watch for while using this medicine? Tell your doctor or health pediatric acute care unit nurse if your symptoms do not improve or if you get new symptoms. Your doctor will monitor your condition and blood work as needed. Do not treat diarrhea with over the counter products. Contact your doctor if you have diarrhea that lasts more than 2 days or if it is severe and watery. This medicine can interfere with some urine glucose and some urine ketone tests. If you use such tests, talk with your health pediatric acute care unit nurse. If you are being treated for a sexually transmitted disease, avoid sexual contact until you have finished your treatment. Having sex can infect your sexual partner. Tramadol Hydrochloride Oral tablet What is this medicine? TRAMADOL (TRA ma dole) is a pain reliever. It is used to treat moderate to severe pain in adults. How should I use this medicine? Take this medicine by mouth with a full glass of water. Follow the directions on the prescription label. If the medicine upsets your stomach, take it with food or milk. Do not take more medicine than you are told to take. Talk to your fence maker regarding the use of this medicine in children. Special care may be needed. What side effects may I notice from receiving this medicine? Side effects that you should report to your doctor or health pediatric acute care unit nurse as soon as possible: allergic reactions like skin rash, itching or hives, swelling of the face, lips, or tongue breathing difficulties, wheezing confusion itching light headedness or fainting spells redness, blistering, peeling or loosening of the skin, including inside the mouth seizures Side effects that usually do not require medical attention (report to your doctor or health pediatric acute care unit nurse if they continue or are bothersome): constipation dizziness drowsiness headache nausea, vomiting What may interact with this medicine? Do not take this medicine with any of the following medications: MAOIs like Carbex, Eldepryl, Marplan, Nardil, and Parnate This medicine may also interact with the following medications: alcohol or medicines that contain alcohol antihistamines benzodiazepines bupropion carbamazepine or oxcarbazepine clozapine cyclobenzaprine digoxin furazolidone linezolid medicines for depression, anxiety, or psychotic disturbances medicines for migraine headache like almotriptan, eletriptan, frovatriptan, naratriptan, rizatriptan, sumatriptan, zolmitriptan medicines for pain like pentazocine, buprenorphine, butorphanol, meperidine, nalbuphine, and propoxyphene medicines for sleep muscle relaxants naltrexone phenobarbital phenothiazines like perphenazine, thioridazine, chlorpromazine, mesoridazine, fluphenazine, prochlorperazine, promazine, and trifluoperazine procarbazine warfarin What if I miss a dose? If you miss a dose, take it as soon as you can. If it is almost time for your next dose, take only that dose. Do not take double or extra doses. Where should I keep my medicine? Keep out of the reach of children. Store at room temperature between 15 and 30 degrees C (59 and 86 degrees F). Keep container tightly closed. Throw away any unused medicine after the expiration date. What should I tell my health care provider before I take this medicine? They need to know if you have any of these conditions: brain tumor depression drug abuse or addiction head injury if you frequently drink alcohol containing drinks kidney disease or trouble passing urine liver disease lung disease, asthma, or breathing problems seizures or epilepsy suicidal thoughts, plans, or attempt; a previous suicide attempt by you or a family member an unusual or allergic reaction to tramadol, codeine, other medicines, foods, dyes, or preservatives or trying to get breast-feeding What should I watch for while using this medicine? Tell your doctor or health pediatric acute care unit nurse if your pain does not go away, if it gets worse, or if you have new or a different type of pain. You may develop tolerance to the medicine. Tolerance means that you will need a higher dose of the medicine for pain relief. Tolerance is normal and is expected if you take this medicine for a long time. Do not suddenly stop taking your medicine because you may develop a severe reaction. Your body becomes used to the medicine. This does NOT mean you are addicted. Addiction is a behavior related to getting and using a drug for a non-medical reason. If you have pain, you have a medical reason to take pain medicine. Your doctor will tell you how much medicine to take. If your doctor wants you to stop the medicine, the dose will be slowly lowered over time to avoid any side effects. You may get drowsy or dizzy. Do not drive, use machinery, or do anything that needs mental alertness until you know how this medicine affects you. Do not stand or sit up quickly, especially if you are an older patient. This reduces the risk of dizzy or fainting spells. Alcohol can increase or decrease the effects of this medicine. Avoid alcoholic drinks. You may have constipation. Try to have a bowel movement at least every 2 to 3 days. If you do not have a bowel movement for 3 days, call your doctor or health pediatric acute care unit nurse. Your mouth may get dry. Chewing sugarless gum or sucking hard candy, and drinking plenty of water may help. Contact your doctor if the problem does not go away or is severe. You have been given the following additional information: Pyelonephritis, Female (Adult) Smoking Cessation Cefixime Oral tablet Tramadol Hydrochloride Oral tablet (Electronically signed by Dilip Farooq Dr. 04/17/2017 11:58)
--- NOTE | 2017-04-17 11:59 | ED MAR SUMMARY ---
..... Medication Administration Record [facility] [address] [place] [place] [address] Patient: JERSEY VANN Visit ID: [id number] 56y, F Weight: 42.1 kg Height/Length: 62 in BMI: 17 ALLERGIES: None Start 15:43 04/16/2017 Efrain Salazar R.N., Stop 16:09 04/16/2017 Efrain Salazar R.N. Medication Administered: CEFTRIAXONE [IVPB], Dose: 1 gm IVPB over 20 minute(s), Rate: 120 mL/hr, Dispensed: 50 mL bag, Site: #1 left AC. Medication Ordered: Ceftriaxone IV 1 gm/50mL (NOW). Given 16:49 04/16/2017 Efrain Salazar R.N. Medication Administered: PERCOCET [PO] (OXYCODONE-ACETAMINOPHEN), Dose: 1 tab 5/325 mg Tablets PO. Medication Ordered: Percocet PO 5/325 mg (HIGH ALERT MEDICATION, NOW).
== END 2017-04-16 18:00 | disposition home or self-care (01) ==
LOC: ED SRH 13:32
DX: N10 Acute pyelonephritis (principal); F17.210 Nicotine dependence, cigarettes, uncomplicated
CPT/HCPCS: 90004; 90025; 90100; 90148; 90469; 95059